=== PATIENT | female | born 1945 | race Caucasian/White ===

== ENCOUNTER 2016-12-28 19:06 | Emergency (ER) | payer MEDICARE, OTHER ==
[2016-12-28] MEDS ORDERED: Morphine INJ* 4 MG/ML 1 ML CARPUJECT SUBCUT ONE (19:17)
[2016-12-28] MEDS ORDERED: LORazepam INJ* 2 MG/ML 1 ML VIAL IV PUSH ONE (19:49)
[2016-12-28] MEDS ORDERED: Morphine INJ* 2 MG/ML 1 ML CARPUJECT IV ONE (19:49)
--- NOTE | 2016-12-28 20:08 | RAD ---
INDICATION: Traumatic fracture left wrist COMPARISON: None TECHNIQUE: AP and lateral views were obtained. FINDINGS: There is a comminuted intra-articular distal radial fracture with minor angular deformity. There is also fracture from the ulnar styloid. There is diffuse soft tissue swelling with mild deformity. IMPRESSION: DISTAL RADIAL AND ULNAR FRACTURES DESCRIBED.
--- NOTE | 2016-12-28 20:36 | ED ---
Katharina Borja Janilya, scribed for Terrence Roldan MD on 12/28/16 at 1932 . Adult Trauma - HPI Summary HPI Summary: A 71 y/o female was BIBA to [facility] after falling while walking up the hill a few hours ago. Pt denies losing consciousness or passing out, although she does state that she had to sit out for a bit after falling. In addition, pt reports swelling and pain of left wrist that is improved with morphine. She denies any other deformities. Pt is not on bloodthinners. - History of Current Complaint Stated Complaint: LEFT WRIST INJURY Time Seen by Provider: 12/28/16 19:18 Hx Obtained From: Patient Mechanism of Injury: Fall Loss of Consciousness: no loss of consciousness Onset/Duration: Started Hours Ago, Atraumatic, Still Present Onset of Pain: Immediate Onset Severity: Moderate Current Severity: Moderate Location: Extremities - left wrist Character: Aching Aggravating Factor(s): Nothing Alleviating Factor(s): Medications - morphine - Allergy/Home Medications Allergies/Adverse Reactions: Allergies Allergy/AdvReac Type Severity Reaction Status Date / Time No Known Allergies Allergy Verified 12/28/16 22:07 PMH/Surg Hx/FS Hx/Imm Hx Previously Healthy: Yes Cardiovascular History: Reports: Hx Hypertension EENT History: Denies: Hx Deafness - Family History Known Family History: Negative: Cardiac Disease, Hypertension, Diabetes - Social History Occupation: Retired Hx Substance Use: No Review of Systems Positive: Arthralgia - pain of left wrist, Myalgia - pain of left wrist, Edema - left wrist Neurological: Negative - pt denies LOC All Other Systems Reviewed And Are Negative: Yes Physical Exam Triage Information Reviewed: Yes Vital Signs On Initial Exam: Initial Vitals Resp 20 12/28/16 19:29 Vital Signs Reviewed: Yes Appearance: Positive: Pain Distress - moderate discomfort, Thin Skin: Positive: Warm Head/Face: Positive: Normal Head/Face Inspection Eyes: Positive: QUOC ENT: Positive: Hearing grossly normal Neck: Positive: Supple Respiratory/Lung Sounds: Positive: Breath Sounds Present Cardiovascular: Positive: RRR Abdomen Description: Positive: Nontender, Soft Musculoskeletal: Positive: Other - tender, swollen distal lt forearm Neurological: Positive: NV Bundle Intact Distally Psychiatric: Positive: Affect/Mood Appropriate Procedures - Splinting Hand-Made Type: orthoglass Splint: thumb spica Pre-Proc Neuro Vasc Exam: normal Post-Proc Neuro Vasc Exam: normal Diagnostics - Vital Signs Vital Signs Temp Pulse Resp BP Pulse Ox 12/28/16 19:56 18 12/28/16 19:55 18 12/28/16 19:39 99.1 F 78 24 169/76 98 12/28/16 19:29 20 - Laboratory Lab Statement: Any lab studies that have been ordered have been reviewed, and results considered in the medical decision making process. - Radiology wrist xray Xray Interpretation: Positive (See Comments) - IMPRESSION: DISTAL RADIAL AND ULNAR FRACTURES DESCRIBED. Radiology Interpretation Completed By: Radiologist Adult Trauma Course/Dx - Diagnoses Provider Diagnoses: Wrist fracture Discharge - Discharge Plan Condition: Stable Disposition: HOME Patient Education Materials: Wrist Fracture in Adults (ED) Referrals: Ari Hu MD [Medical Doctor] - 1 Day Additional Instructions: Follow up with orthopedics tomorrow. The documentation as recorded by the Katharina arguello Janilya accurately reflects the service I personally performed and the decisions made by , Terrence Roldan MD.
[2016-12-28] MEDS ORDERED: oxyCODONE/Acetamin 5/325 MG* TAB PO ONE ×2 (21:14→21:15)
[2016-12-28 21:59] VITALS: BP 140/76
== END 2016-12-28 21:56 | disposition home or self-care (01) ==
LOC: ED 19:06
DX: S52.502A Unspecified fracture of the lower end of left radius, initial encounter for closed fracture (principal); S52.602A Unspecified fracture of lower end of left ulna, initial encounter for closed fracture; M25.532 Pain in left wrist; R60.9 Edema, unspecified; W19.XXXA Unspecified fall, initial encounter; Y93.9 Activity, unspecified; Y92.9 Unspecified place or not applicable; Y99.9 Unspecified external cause status
CPT/HCPCS: 96374; 96375; 99283; A9270-GY; J2060; J2270

== ENCOUNTER 2017-01-04 08:42 | Day surgery (SDC) | payer MEDICARE, OTHER ==
[~2017-01-04 08:42] MED LIST: Buffered Lidocaine 1% SYR 3ML* 3 ML/SYR SYRINGE INTRADERM ONE; Dexamethasone IV* 4 MG/ML 1 ML (4 MG) IV SLOW PU ONE; Famotidine IV* 10 MG/ML 2 ML (20 mg) IV ONE
[2017-01-04] MEDS ORDERED: Bupivacaine 0.25% SDV* 30 ML ONE (09:02)
[2017-01-04] MEDS ORDERED: ROPIVACAINE 5 MG/ML 30 ML BTL (0.5%) ONE (09:11)
[2017-01-04] MEDS ORDERED: Ketorolac INJ* 30 MG/ML 1 ML VIAL ONE (09:14)
[2017-01-04] MEDS ORDERED: fentaNYL* 50 MCG/ML 2 ML VIAL (100 MCG VIAL) ONE ×3 (09:14→12:11)
[2017-01-04] MEDS ORDERED: Midazolam* 1 MG/ML 5 ML VIAL (5 MG) ONE (09:14)
[2017-01-04] MEDS ORDERED: Ondansetron INJ* 2 MG/ML VIAL ONE (09:14)
[2017-01-04] MEDS ORDERED: Propofol* 10 MG/ML 20 ML BTL IV PUSH ONE (09:14)
[2017-01-04] MEDS ORDERED: ceFAZolin 2 GM PREMIX (*) 2 GM/50 ML BAG IVPB ONE (09:25)
[2017-01-04] MEDS ORDERED: Atracurium* 10 MG/ML 10 ML VIAL ONE (09:28)
[2017-01-04] MEDS ORDERED: Glycopyrrolate IV* 0.2 MG/ML 1 ML VIAL ONE (10:00)
[2017-01-04] MEDS ORDERED: fentaNYL* 50 MCG/ML 2 ML VIAL (100 MCG VIAL) IV PRN (10:17)
[2017-01-04] MEDS ORDERED: Ondansetron INJ* 2 MG/ML VIAL IV PRN (10:17)
[2017-01-04] MEDS ORDERED: DiMENhydriNATE IV* 50 MG/ML VIAL IV PUSH PRN (10:17)
[2017-01-04] MEDS ORDERED: oxyCODONE/Acetamin 5/325 MG* TAB PO PRN (10:17)
[2017-01-04] MEDS ORDERED: oxyCODONE/Acetamin 5/325 MG* TAB ONE (12:37)
[2017-01-04 15:53] VITALS: BP 130/66
--- NOTE | 2017-01-05 05:28 | OP ---
DATE OF OPERATION: 01/04/17 - [facility] DATE OF : 49 SURGEON: Ari Hu MD TRAVERTINE INSTALLER: LUC Sandoval ANESTHESIOLOGIST: Boyd Herrera MD ANESTHESIA: Axillary block plus general. PRE-OP DIAGNOSIS: Left intraarticular, greater than 3 fragments distal radius fracture. POST-OP DIAGNOSIS: Left intraarticular, greater than 3 fragments distal radius fracture. OPERATIVE PROCEDURE: Open reduction and internal fixation of left intraarticular, greater than 3 fragments, distal radius fracture. INDICATIONS: Aleja is a very pleasant 71-year-old female who had a fall in the ice. She fractured the distal radius. X-rays showed intraarticular split and significant shortening of the fracture as well as a dorsal tilt. We had talked about risks and benefits. She had elected to proceed with open reduction internal fixation of the left distal radius fracture. ESTIMATED BLOOD LOSS: 5 mL. COMPLICATIONS: None. FINDINGS: Multiple intraarticular splits in both the sagittal and coronal planes. DESCRIPTION OF PROCEDURE: Aleja was seen in the preoperative holding area and the correct side and site were marked. We came back to the operating room where the axillary block was performed and anesthesia was induced. The arm was then prepped and draped in the usual fashion and a formal time-out was performed. I began by making a longitudinal incision over the FCR tendon sheath. Dissection was carried down through the tendon sheath and this was incised longitudinally. The tendon was retracted ulnarly and the subsheath was incised sharply. This was extended proximally and distally with the tenotomy scissors. I used my finger to sweep away the soft tissues and develop the interval between the FPL and the pronator quadratus. The FPL was retracted ulnarly. The pronator quadratus was released off the radial margin of the radius and then released transversely distally preserving about 2 or 3 mm of the volar extrinsic ligaments. There was excellent exposure of the fracture. There were two large metaphyseal volar fragments. There were multiple splits into the articular surface. There was a coronal split as well. I exposed the fracture and cleaned out the interposing soft tissue. I closed the open-booked end on the volar fragments and got them back out to length and pinned them in place out of the way of the plate. I placed that hand in traction device and hung 10 pounds of traction off the end of the bed. At this point, I checked to see how much correction of the dorsal tilt and radial inclination I had obtained. It was still quite dorsally tilted with the volar surface been out to length, but the dorsal surface definitely not been out to length. At this point, I brought the plate and positioned it appropriately and pinned it in place with 2 distal wires. I checked the plate position via fluoroscopy and I was very pleased with it. I then placed the 5 most distal screws. These were all variable angle locking screws, but the nominal angle guide was used for all but the radial styloid screw. At this point, I was satisfied with the fixation of the plate distally. I then had my assistant manager retail pull longitudinal retraction and ulnarly deviate the wrist as well as flex the wrist. I had a lobster claw on the proximal shaft and was able to get the reduction in position that I wanted. I brought the plate down to the bone and clamped it in place with a lobster claw. At this point, I checked fluoroscopy and I was very satisfied with the reduction. There was nice congruity at the joint surface on the fluoroscopic imaging. On the lateral view, there was again good congruity and just very minimal stepoff. There was samaritan of the right volar tilt, radial height, and radial inclination. I therefore placed 3 proximal screws in the shaft. Final fluoroscopic images were obtained. We then copiously irrigated the wound and reapproximated the pronator quadratus with some 3-0 Polysorb suture. The dermis was approximated with a couple of 3-0 Polysorb sutures and the skin was closed with a 3-0 Monocryl suture followed by Steri-Strips. The wound was dressed with sterile 4x4's, sterile Webril, and a volar cock-up wrist splint was placed. She was then woken back up and taken to the recovery room in stable condition. [id number]/[facility] #: [id number] JOHN
--- NOTE | 2017-01-05 11:20 | RAD ---
INDICATION: Fall, left wrist fracture COMPARISONS: December 28, 2016 TECHNIQUE: Fluoroscopy was provided for without. Total fluoroscopy time is: 50 seconds FINDINGS: Spot images demonstrate internal fixation of the distal radius. IMPRESSION: FLUOROSCOPY WAS PROVIDED FOR A SURGICAL PROCEDURE CPT II Codes: 6045F
== END 2017-01-04 13:23 | disposition home or self-care (01) ==
LOC: OREAST 08:42
PROVIDERS: ATTEND Orthopaedic Surgery Hand Surgery
DX: S52.502A Unspecified fracture of the lower end of left radius, initial encounter for closed fracture (principal); X58.XXXA Exposure to other specified factors, initial encounter; I10 Essential (primary) hypertension
CPT/HCPCS: 76000; A9270-GY; C1713; C1776; J0690; J1885; J2250; J2405; J2704; J2795; J3010